=== PATIENT | male | born 1980 | race Caucasian/White ===

== ENCOUNTER 2017-06-07 23:47 | Emergency (ER) | payer MEDICAID ==
[~2017-06-07] VITALS: Ht 172.7 cm; Wt 81.6 kg
[2017-06-08] MEDS ORDERED: ALLZITAL 25-321 EACH PO (00:01)
[2017-06-08 00:04] VITALS: BP 114/80
[2017-06-08] MEDS ORDERED: POLYTRIM OP SOL10 ML OPHTHALM (00:18)
--- NOTE | 2017-06-08 00:19 | Emergency Room Report ---
History of Present Illness General Chief Complaint: Eye Problems Source: Patient Present Illness HPI Is a 37-year-old male who presents with chief complaint of the thigh drainage and swelling. Onset for last 2 days. No nausea no vomiting. No cough congestion. Does have runny nose. No foreign body. Drainage is yellowish discharge. Allergies: Coded Allergies: No Known Allergies (Unverified , 06/08/17) Patient History Past Medical History: see triage record, old chart reviewed Past Surgical History: none Pertinent Family History: none Social History: Denies: smoking Immunizations: other Reviewed Nursing Documentation: PMH: Agreed; PSxH: Agreed Nursing Documentation-PMH Hx Neurological Problems: Yes - MIGRAINE Review of Systems Eye: Reports: blurred vision, discharge; Denies: eye pain ENT: Denies: ear pain, nose congestion, throat swelling Respiratory: Denies: cough, shortness of breath Cardiovascular: Denies: chest pain, palpitations Gastrointestinal: Denies: abdominal pain, diarrhea, nausea, vomiting Musculoskeletal: Denies: back pain, joint pain Skin: Denies: rash Neurological: Denies: headache, numbness Endocrine: Denies: increased thirst, increased urine Hematologic/Lymphatic: Denies: easy bruising All Other Systems: negative except mentioned in HPI Physical Exam Vital Signs Date Time Temp Pulse Resp B/P (MAP) Pulse Ox O2 Delivery O2 Flow Rate FiO2 06/07/17 23:55 97.7 84 16 114/80 97 Room Air 97.7 vitals normal Sp02 EP Interpretation: reviewed, normal General Appearance: well appearing, no apparent distress, alert Head: normocephalic, atraumatic Eyes: left eye other - left conjunctiva injected with yellowish dc; bilateral eye PERRL, bilateral eye EOMI ENT: hearing grossly normal, normal pharynx Neck: full range of motion, supple, no meningismus Respiratory: chest non-tender, lungs clear, normal breath sounds Cardiovascular #1: regular rate, rhythm, no murmur Gastrointestinal: normal bowel sounds, non tender, no mass, no organomegaly, no bruit, non-distended Musculoskeletal: back normal, gait/station normal, normal range of motion Psychiatric: mood/affect normal Skin: warm/dry Medical Decision Making Diagnostic Impression: Primary Impression: Conjunctivitis Qualified Codes: H10.32 - Unspecified acute conjunctivitis, left eye ER Course Patient presents with conjunctivitis. Most likely viral in nature. No evidence of foreign body. No evidence of loss of vision. We'll discharge home. Last Vital Signs Date Time Temp Pulse Resp B/P (MAP) Pulse Ox O2 Delivery O2 Flow Rate FiO2 06/07/17 23:55 97.7 84 16 114/80 97 Room Air 97.7 Status: unchanged Disposition: HOME, SELF-CARE Condition: Stable Scripts Polymyxin/Trimethoprim (Polytrim Eye Drops) 10 Ml Drops 2 DROP OPHTHALM THREE TIMES A DAY, #1 EA Instill in affected eye for 7 days Prov: LISSY WESTBROOK M.D. 06/08/17 Patient Instructions: Bacterial Conjunctivitis, [id number] Additional Instructions: Treatment size. Follow-up with your doctor in 7 days. May use baby shampoo to clean eyelashes. if not better, you may benefit from referral to see surgical instruments inspector Return if worse. LISSY WESTBROOK M.D. Jun 08, 2017 00:19
[2017-06-08 00:35] VITALS: BP 0/0
== END 2017-06-08 00:35 | disposition home or self-care (01) ==
LOC: EMR 06-08 00:05
DX: H10.9 Unspecified conjunctivitis (principal)
CPT/HCPCS: 99283